=== PATIENT | male | born 1995 | race Caucasian/White ===

== ENCOUNTER 2020-03-30 20:19 | Emergency (ER) | payer BC, SELFPAY ==
[2020-03-30 20:20] VITALS: BP 133/79; PULSE 82; RESP 18; TEMP 36.4; O2SAT 97; BMI 20.5
--- NOTE | 2020-03-30 23:30 | ED.DCSUM_ITS ---
- ER Visit Summary Date of Service: 03/30/20 Chief Complaint: [Laceration right small finger] History of Present Illness: The patient is a 24 M [to the emergency department with laceration to his right small finger that occurred this evening while helping his father move something. Patient states that his finger slipped on it and lacerated the finger. Patient is right-hand dominant. Patient is up-to-date on tetanus. Patient has no medical history.] Physical Examination: [Right small finger-patient has a 1.3 cm laceration over the medial aspect of the middle phalanx that is L-shaped extending to the palmar midline. Patient has normal range of motion of flexion-extension of the DIP and PIP joint. Patient has normal strength. Neurovascular intact distally.] Test Results: [Indicated] Emergency Department Course and Treatment: [Laceration repair-wound sterilely draped and prepped. Wound cleansed with Shur-Clens and irrigated with copious saline. Wound initially anesthetized with 1% lidocaine total 6 cc via digital block. Wound was inspected and there is no evidence of tendon involvement. Patient laceration did not go past the subcutaneous fat. Using 5-0 nylon a total of 5 single ruptured sutures placed with good wound edge approximation. Patient taught procedure well. Dressing applied.] Treatment Plan: [Patient to follow-up with primary care physician in 10 days for suture removal. Patient advised to return if increasing pain, redness, swelling, purulent drainage, or condition should worsen anyway.] Disposition: discharged home in stable condition] Impression: [Laceration right small finger 0.3 cm-simple repair] This note was generated with [employer] dictation software. It may contain incorrect words, spelling, and punctuation that were not noted in review of the chart prior to signing ED Disposition - Plan for ED Patient: Referrals: Phong Allan III, MD [Primary Care Provider] -
--- NOTE | 2020-03-30 23:33 | ED.DEP ---
ED Disposition - Plan for ED Patient: Instructions: ED Laceration Hand Referrals: Phong Allan III, MD [Primary Care Provider] - 10 Day for suture removal
[2020-03-30 23:45] VITALS: BP 128/79; PULSE 82; RESP 14; O2SAT 99
== END 2020-03-30 23:46 | disposition home or self-care (01) ==
LOC: ED 23:43
PROVIDERS: Emergency Provider Emergency Medicine; PCP Family Medicine
DX: S61.216A Laceration without foreign body of right little finger without damage to nail, initial encounter (principal); W01.0XXA Fall on same level from slipping, tripping and stumbling without subsequent striking against object, initial encounter; Z72.0 Tobacco use
CPT/HCPCS: 12001; 99283